=== PATIENT | female | born 1965 | race Caucasian/White ===

== ENCOUNTER 2019-07-30 16:28 | Emergency (ER) | payer SELFPAY ==
[~2019-07-30] VITALS: Ht 177.8 cm; Wt 72.6 kg
[2019-07-30 17:00] VITALS: BP_SYST 117
--- NOTE | 2019-07-30 17:40 | NUR ---
Patient to ER bed 6 to gown for evaluation. Side rails up. Report given to DEMETRI LEDEZMA.
--- NOTE | 2019-07-30 17:56 | NUR ---
RN assesses and attempts IV access. pt has severe scarring on all vein access sites. Will attempt again later after lab draw and EKG
--- NOTE | 2019-07-30 17:56 | NUR ---
MD Wetzel at bedside.
--- NOTE | 2019-07-30 18:24 | NUR ---
RN asks other RN to try IV access. dietetic tech was unable to obtain blood as well .
[2019-07-30 19:04] LABS: BASOPHILS % (AUTO) 0.5 % (0.0-2.0); EOSINOPHILS # (AUTO) 0.1 K/uL (0.0-0.4); EOSINOPHILS % (AUTO) 1.3 % (0.0-4.0); HEMATOCRIT 26.6 % (36-48); LYMPHOCYTES # (AUTO) 1.7 K/uL (1.0-5.5); LYMPHOCYTES % (AUTO) 39.3 % (20.5-51.5); MEAN CORPUSCULAR HEMOGLOBIN 25 pg (27-31); MEAN CORPUSCULAR HGB CONC 30 % (32-36); MEAN CORPUSCULAR VOLUME 83 fL (79.0-98.0); MONOCYTES # (AUTO) 0.3 K/uL (0.0-1.0); MONOCYTES % (AUTO) 7.2 % (1.7-9.3); NEUTROPHILS # (AUTO) 2.2 K/uL (1.8-7.7); NEUTROPHILS % (AUTO) 51.7 % (40.0-70.0); PLATELET COUNT (AUTO) 172 K/uL (130-430); RED BLOOD CELL COUNT(AUTO) 3.22 MIL/uL (4.2-6.2); WHITE BLOOD COUNT (AUTO) 4.3 K/uL (4.8-10.8)
[2019-07-30 19:15] VITALS: BP_SYST 117
--- NOTE | 2019-07-30 19:20 | NUR ---
IV access finally obtained in the right foot. noted
[2019-07-30 19:22] LABS: CALCIUM 8.3 mg/dL (8.4-11.0); CREATININE 0.81 mg/dL (0.55-1.30); POTASSIUM 3.8 mmol/L (3.5-5.1)
[2019-07-30 19:30] LABS: PROTHROMBIN TIME 10.1 SECS (9.5-12.5)
[2019-07-30 19:31] LABS: TOTAL BILIRUBIN 0.3 mg/dL (0.0-1.0)
--- NOTE | 2019-07-30 19:45 | NUR ---
Pt eloped out the door having DC'd her own IV access. No visible bleeding out from IV site upon visual inspection as Pt eloped out the door
== END 2019-07-30 19:45 | disposition left against medical advice (07) ==
LOC: SED 16:28
DX: R10.13 Epigastric pain (principal); Z88.6 Allergy status to analgesic agent
CPT/HCPCS: 36415; 80053; 83605; 83690-TC; 85025; 85610-TC; 87040-TC; 93005; 99284